=== PATIENT | female | born 1995 | race American Indian/Alaskan Native ===

== ENCOUNTER 2020-07-16 15:57 | Inpatient (IN) | payer OTHER ==
--- NOTE | 2020-07-16 18:33 | Ultrasound Report ---
US OB limited INDICATION / CLINICAL INFORMATION: no movement. COMPARISON: None available. FINDINGS: A single fetus is seen in the uterus in breech position. No cardiac activity is visualized IMPRESSION: Probable demise without cardiac activity visualized Signer Name: Alessandro Sepulveda MD FACR Signed: 07/16/2020 6:29 PM Workstation Name: [id number]
--- NOTE | 2020-07-16 18:38 | History and Physical Report ---
History of Present Illness Date of examination: 07/16/20 Date of admission: 07/16/2020 Chief complaint: Decreased movement History of present illness: at 27w6d presents with decreased movement for the past 3 days, IUFD on triage US. Denies cramping, bleeding, or pain. Denies illicit drug use or changes in lifestyle. PMH significant for depression and attempted suicide, now stable. Supportive partner at bedside. This has been uncomplicated until this point. Past History Past Medical History: other (depression) Past Surgical History: no surgical history Social history: other (supportive partner) - Obstetrical History Expected Date of Delivery: 10/09/20 Actual Gestation: 27 Week(s) 6 Day(s) : 1 Para: 0 Medications and Allergies Allergies Allergy/AdvReac Type Severity Reaction Status Date / Time No Known Allergies Allergy Verified 07/16/20 16:26 Review of Systems Gastrointestinal: no abdominal pain, no nausea, no vomiting, no diarrhea, no constipation Genitourinary: no vaginal bleeding, no vaginal discharge, no leakage of fluid, no pelvic pain, no contractions - Vital Signs Vital signs: Vital Signs Pulse Pulse Ox 73 100 07/16/20 16:49 07/16/20 16:49 Temp Pulse Resp BP Pulse Ox 68 123/74 100 07/16/20 16:52 07/16/20 16:52 07/16/20 16:49 - Physical Exam Lungs: Positive: Normal air movement Abdomen: Positive: normal appearance, soft. Negative: distention, tenderness, guarding, rigidity Genitourinary (Female): Positive: normal external genitalia Vagina: Positive: normal moisture Uterus: Positive: enlarged (gravid, 27w). Negative: tender - Obstetrical FHR: other (absent) Cervical Dilatation: 0 Cervical Effacement Percentage: 0 Uterine Contraction Pattern: Absent Results All other labs normal. Assessment and Plan A: 24 yo at 27w6d EGA Intrauterine Demise Cervix unfavorable Desires induction today P: Admit to L&D for induction of labor Cytotec Pain relief as requested Bereavement support HILLARY Gama
[2020-07-16] MEDS ORDERED: ePHEDrine SULFATE 50 MG/1 ML INJ IV PRN (18:50)
[2020-07-16] MEDS ORDERED: TERBUTALINE 1 MG/1 ML INJ SUB-Q PRN (18:50)
[2020-07-16] MEDS ORDERED: MINERAL OIL 30 ML ORAL LIQD PO PRN (18:50)
[2020-07-16] MEDS ORDERED: BUTORPHANOL 2 MG/1 ML INJ IV PRN ×2 (18:50)
[2020-07-16] MEDS ORDERED: OXYTOCIN 10 UNIT/1 ML INJ IM PRN (18:50)
[2020-07-16] MEDS ORDERED: PROMETHAZINE 25 MG TAB PO PRN (18:50)
[2020-07-16] MEDS ORDERED: ONDANSETRON 4 MG/2 ML INJ IV PRN (18:50)
[2020-07-16] MEDS ORDERED: NALOXONE 0.4 MG/1 ML INJ IV PRN (18:50)
[2020-07-16] MEDS ORDERED: OXYTOCIN DRIP 30 UNITS/500 ML BAG IV SCH ×2 (19:00)
[2020-07-16 19:23] LABS: Hematocrit 35.4 % (30.3-42.9); Hemoglobin 12.5 gm/dl (10.1-14.3); Mean Corpuscular HGB Conc 35 % (30-34); Mean Corpuscular Volume 89 fl (79-97); Platelet Count 255 K/mm3 (140-440); Red Blood Count 3.96 M/mm3 (3.65-5.03); Red Cell Distribution Width 13.3 % (13.2-15.2)
[2020-07-16 19:38] LABS: Alanine Aminotransferase 12 units/L (7-56); Albumin 3.9 g/dL (3.9-5); Blood Urea Nitrogen 12 mg/dL (7-17); Hemolysis Index 8
[2020-07-16 19:39] LABS: BUN/Creatinine Ratio 30
[2020-07-16] MEDS ORDERED: LIDOCAINE (2%) 20 MG/1 ML VIAL 20 ML MDV INFILTRATI ONE (20:00)
[2020-07-16] MEDS: miSOPROStol 25 MCG TAB VG SCH (20:27)
[2020-07-16] MEDS ORDERED: ZOLPIDEM 5 MG TAB PO PRN (20:36)
[2020-07-17] MEDS: miSOPROStol 25 MCG TAB VG SCH ×3 (00:26→06:51)
[2020-07-17] MEDS: fentaNYL 100 MCG/2 ML INJ IV PRN ×2 (06:36→08:19)
[2020-07-17] MEDS: LACTATED RINGERS 1,000 ML IV SCH ×2 (08:11→09:48)
[2020-07-17] MEDS ORDERED: ePHEDrine SULFATE 50 MG/1 ML INJ IV PRN (08:20)
[2020-07-17] MEDS ORDERED: NALOXONE 2 MG/2 ML INJ IV PRN (08:20)
--- NOTE | 2020-07-17 08:20 | Anesthesia Consultation ---
Anesthesia Consult and Med Hx Date of service: 07/17/20 - Airway Anesthetic Teeth Evaluation: Good ROM Head & Neck: Adequate Mental/Hyoid Distance: Adequate Mallampati Class: Class II Intubation Access Assessment: Probably Good - Pulmonary Exam CTA: Yes - Cardiac Exam Cardiac Exam: RRR - Pre-Operative Health Status ASA Pre-Surgery Classification: ASA2 Proposed Anesthetic Plan: Epidural - Pulmonary Hx Asthma: Yes (childhood) - Cardiovascular System Hx Hypertension: No - Central Nervous System Hx Seizures: No Hx Psychiatric Problems: Yes (depression) - Endocrine Hx Renal Disease: No Hx Hypothyroidism: No Hx Hyperthyroidism: No - Hematic Hx Anemia: No Hx Sickle Cell Disease: No - Other Systems Hx Alcohol Use: No
--- NOTE | 2020-07-17 08:25 | Progress Note ---
Assessment and Plan A: IUFD at 27w6d s/p multiple doses of misoprostol 50 mcg, last dose 100 mcg misoprostol at 0615 am P: Epidural Increase dose of misoprostol to 400 mcg q 4 hrs Closely monitor maternal status Subjective - Subjective Date of service: 07/17/20 Principal diagnosis: IUFD at 27w6d, undergoing induction of labor Interval history: Pt now uncomfortable with contractions, bolusing for epidural. Patient reports: contractions, no new complaints, no loss of fluid, no vaginal bleeding, no movement normal Objective - Vital Signs Vital Signs: Vital Signs - 12hr 07/16/20 07/16/20 07/16/20 20:25 20:30 20:35 Temperature Pulse Rate 62 59 L 59 L Respiratory Rate Blood Pressure Blood Pressure [Left] O2 Sat by Pulse 100 100 99 Oximetry 07/16/20 07/16/20 07/16/20 20:40 20:45 20:50 Temperature Pulse Rate 78 65 59 L Respiratory Rate Blood Pressure Blood Pressure [Left] O2 Sat by Pulse 100 97 100 Oximetry 07/16/20 07/16/20 07/16/20 20:55 21:00 21:06 Temperature Pulse Rate 60 56 L 82 Respiratory Rate Blood Pressure Blood Pressure [Left] O2 Sat by Pulse 100 100 93 Oximetry 07/16/20 07/16/20 07/16/20 21:07 21:12 21:17 Temperature Pulse Rate 86 68 66 Respiratory Rate Blood Pressure Blood Pressure [Left] O2 Sat by Pulse 100 100 100 Oximetry 07/16/20 07/16/20 07/16/20 21:22 21:27 21:32 Temperature Pulse Rate 59 L 64 76 Respiratory Rate Blood Pressure Blood Pressure [Left] O2 Sat by Pulse 100 100 100 Oximetry 07/16/20 07/16/20 07/16/20 21:37 21:42 21:47 Temperature Pulse Rate 81 68 68 Respiratory Rate Blood Pressure Blood Pressure [Left] O2 Sat by Pulse 99 99 99 Oximetry 07/16/20 07/16/20 07/16/20 21:52 21:55 21:57 Temperature Pulse Rate 72 76 63 Respiratory Rate Blood Pressure Blood Pressure [Left] O2 Sat by Pulse 100 92 100 Oximetry 07/16/20 07/16/20 07/16/20 22:02 22:07 22:12 Temperature Pulse Rate 67 66 68 Respiratory Rate Blood Pressure Blood Pressure [Left] O2 Sat by Pulse 100 100 100 Oximetry 07/16/20 07/16/20 07/16/20 22:17 22:22 22:27 Temperature Pulse Rate 64 88 66 Respiratory Rate Blood Pressure Blood Pressure [Left] O2 Sat by Pulse 100 100 100 Oximetry 07/16/20 07/16/20 07/16/20 22:32 22:37 22:42 Temperature Pulse Rate 64 65 70 Respiratory Rate Blood Pressure Blood Pressure [Left] O2 Sat by Pulse 100 100 99 Oximetry 07/16/20 07/16/20 07/16/20 22:47 22:52 22:57 Temperature Pulse Rate 65 72 66 Respiratory Rate Blood Pressure Blood Pressure [Left] O2 Sat by Pulse 99 100 99 Oximetry 07/16/20 07/16/20 07/16/20 23:02 23:07 23:12 Temperature Pulse Rate 72 69 102 H Respiratory Rate Blood Pressure Blood Pressure [Left] O2 Sat by Pulse 99 99 98 Oximetry 07/16/20 07/16/20 07/16/20 23:17 23:22 23:27 Temperature Pulse Rate 90 71 76 Respiratory Rate Blood Pressure Blood Pressure [Left] O2 Sat by Pulse 99 100 100 Oximetry 07/16/20 07/16/20 07/16/20 23:32 23:37 23:42 Temperature Pulse Rate 68 68 69 Respiratory Rate Blood Pressure Blood Pressure [Left] O2 Sat by Pulse 99 99 99 Oximetry 07/16/20 07/16/20 07/16/20 23:47 23:52 23:57 Temperature Pulse Rate 66 61 71 Respiratory Rate Blood Pressure Blood Pressure [Left] O2 Sat by Pulse 99 99 100 Oximetry 07/17/20 07/17/20 07/17/20 00:02 00:07 00:12 Temperature Pulse Rate 72 75 79 Respiratory Rate Blood Pressure Blood Pressure [Left] O2 Sat by Pulse 100 99 99 Oximetry 07/17/20 07/17/20 07/17/20 00:17 00:22 00:27 Temperature Pulse Rate 68 66 63 Respiratory Rate Blood Pressure Blood Pressure [Left] O2 Sat by Pulse 99 99 100 Oximetry 07/17/20 07/17/20 07/17/20 00:32 00:37 00:42 Temperature Pulse Rate 68 59 L 66 Respiratory Rate Blood Pressure Blood Pressure [Left] O2 Sat by Pulse 100 100 100 Oximetry 07/17/20 07/17/20 07/17/20 00:47 00:52 00:57 Temperature Pulse Rate 57 L 58 L 58 L Respiratory Rate Blood Pressure Blood Pressure [Left] O2 Sat by Pulse 100 100 100 Oximetry 07/17/20 07/17/20 07/17/20 01:02 01:07 01:12 Temperature Pulse Rate 58 L 65 61 Respiratory Rate Blood Pressure Blood Pressure [Left] O2 Sat by Pulse 100 100 100 Oximetry 07/17/20 07/17/20 07/17/20 01:17 01:23 01:28 Temperature Pulse Rate 63 79 70 Respiratory Rate Blood Pressure Blood Pressure [Left] O2 Sat by Pulse 100 100 100 Oximetry 07/17/20 07/17/20 07/17/20 01:33 01:38 01:39 Temperature Pulse Rate 78 67 73 Respiratory Rate Blood Pressure Blood Pressure [Left] O2 Sat by Pulse 99 100 78 L Oximetry 07/17/20 07/17/20 07/17/20 01:43 01:48 01:53 Temperature Pulse Rate 65 73 66 Respiratory Rate Blood Pressure Blood Pressure [Left] O2 Sat by Pulse 100 100 100 Oximetry 07/17/20 07/17/20 07/17/20 01:58 01:59 02:04 Temperature Pulse Rate 76 91 H 63 Respiratory Rate Blood Pressure Blood Pressure [Left] O2 Sat by Pulse 81 L 79 L 100 Oximetry 07/17/20 07/17/20 07/17/20 02:09 02:14 02:19 Temperature Pulse Rate 61 70 67 Respiratory Rate Blood Pressure Blood Pressure [Left] O2 Sat by Pulse 100 100 100 Oximetry 07/17/20 07/17/20 07/17/20 02:24 02:29 02:34 Temperature Pulse Rate 80 79 73 Respiratory Rate Blood Pressure Blood Pressure [Left] O2 Sat by Pulse 100 99 99 Oximetry 07/17/20 07/17/20 07/17/20 02:39 02:44 02:49 Temperature Pulse Rate 81 74 75 Respiratory Rate Blood Pressure Blood Pressure [Left] O2 Sat by Pulse 100 99 99 Oximetry 07/17/20 07/17/20 07/17/20 02:54 02:59 03:04 Temperature Pulse Rate 80 78 89 Respiratory Rate Blood Pressure Blood Pressure [Left] O2 Sat by Pulse 99 100 99 Oximetry 07/17/20 07/17/20 07/17/20 03:09 03:14 03:19 Temperature Pulse Rate 84 79 82 Respiratory Rate Blood Pressure Blood Pressure [Left] O2 Sat by Pulse 98 98 99 Oximetry 07/17/20 07/17/20 07/17/20 03:24 03:29 03:34 Temperature Pulse Rate 81 84 84 Respiratory Rate Blood Pressure Blood Pressure [Left] O2 Sat by Pulse 99 99 98 Oximetry 07/17/20 07/17/20 07/17/20 03:39 03:46 03:47 Temperature Pulse Rate 84 64 73 Respiratory Rate Blood Pressure Blood Pressure [Left] O2 Sat by Pulse 99 87 99 Oximetry 07/17/20 07/17/20 07/17/20 03:52 03:57 04:02 Temperature Pulse Rate 78 79 77 Respiratory Rate Blood Pressure Blood Pressure [Left] O2 Sat by Pulse 100 99 100 Oximetry 07/17/20 07/17/20 07/17/20 04:19 04:24 04:29 Temperature Pulse Rate 53 L 77 78 Respiratory Rate Blood Pressure Blood Pressure [Left] O2 Sat by Pulse 99 100 100 Oximetry 07/17/20 07/17/20 07/17/20 04:34 04:39 04:44 Temperature Pulse Rate 71 85 87 Respiratory Rate Blood Pressure Blood Pressure [Left] O2 Sat by Pulse 100 99 100 Oximetry 07/17/20 07/17/20 07/17/20 05:03 05:05 05:10 Temperature Pulse Rate 25 L 80 71 Respiratory Rate Blood Pressure Blood Pressure [Left] O2 Sat by Pulse 83 L 100 100 Oximetry 07/17/20 07/17/20 07/17/20 05:12 05:15 05:20 Temperature Pulse Rate 79 73 72 Respiratory Rate Blood Pressure Blood Pressure [Left] O2 Sat by Pulse 82 L 100 99 Oximetry 07/17/20 07/17/20 07/17/20 05:25 05:29 05:30 Temperature Pulse Rate 84 85 77 Respiratory Rate Blood Pressure Blood Pressure [Left] O2 Sat by Pulse 100 75 L 100 Oximetry 07/17/20 07/17/20 07/17/20 05:35 05:38 05:40 Temperature Pulse Rate 77 91 H 73 Respiratory Rate Blood Pressure Blood Pressure [Left] O2 Sat by Pulse 100 85 99 Oximetry 07/17/20 07/17/20 07/17/20 05:45 05:47 05:50 Temperature Pulse Rate 89 80 78 Respiratory Rate Blood Pressure Blood Pressure [Left] O2 Sat by Pulse 99 84 100 Oximetry 07/17/20 07/17/20 07/17/20 05:55 05:56 06:00 Temperature Pulse Rate 75 67 84 Respiratory Rate Blood Pressure Blood Pressure [Left] O2 Sat by Pulse 98 79 L 100 Oximetry 07/17/20 07/17/20 07/17/20 06:05 06:09 06:10 Temperature Pulse Rate 77 103 H 76 Respiratory Rate Blood Pressure Blood Pressure [Left] O2 Sat by Pulse 100 79 L 97 Oximetry 07/17/20 07/17/20 07/17/20 06:15 06:20 06:25 Temperature Pulse Rate 84 70 80 Respiratory Rate Blood Pressure Blood Pressure [Left] O2 Sat by Pulse 99 100 100 Oximetry 07/17/20 07/17/20 07/17/20 06:30 07:08 07:09 Temperature 98.2 F Pulse Rate 76 69 67 Respiratory 16 Rate Blood Pressure 142/78 Blood Pressure 125/75 [Left] O2 Sat by Pulse 100 99 Oximetry 07/17/20 07/17/20 07/17/20 07:10 07:14 07:19 Temperature Pulse Rate 67 74 77 Respiratory Rate Blood Pressure 125/75 Blood Pressure [Left] O2 Sat by Pulse 100 100 Oximetry 07/17/20 07/17/20 07/17/20 07:24 07:29 07:34 Temperature Pulse Rate 71 117 H 64 Respiratory Rate Blood Pressure Blood Pressure [Left] O2 Sat by Pulse 99 100 100 Oximetry 07/17/20 07/17/20 07/17/20 07:36 07:39 07:44 Temperature Pulse Rate 72 72 Respiratory 18 Rate Blood Pressure Blood Pressure [Left] O2 Sat by Pulse 100 100 Oximetry 07/17/20 07/17/20 07/17/20 07:49 07:54 08:10 Temperature Pulse Rate 65 67 66 Respiratory Rate Blood Pressure Blood Pressure [Left] O2 Sat by Pulse 100 100 95 Oximetry 07/17/20 07/17/20 07/17/20 08:15 08:19 08:20 Temperature Pulse Rate 65 68 Respiratory 18 Rate Blood Pressure Blood Pressure [Left] O2 Sat by Pulse 100 100 Oximetry - Exam Breasts: deferred Abdomen: Present: soft (gravid ) Uterus: Present: normal (gravid ) Uterine Contraction Monitor Mode: External Uterine Contraction Pattern: Irregular Uterine Tone Measurement Phase: Resting Uterine Contraction Intensity: Moderate - Labs Labs: Abnormal Labs 07/16/20 07/16/20 19:10 19:10 MCHC 35 H Sodium 135 L Creatinine 0.4 L Laboratory Results - last 24 hr 07/16/20 07/16/20 07/16/20 19:10 19:10 19:10 WBC 10.8 RBC 3.96 Hgb 12.5 Hct 35.4 MCV 89 MCH 32 MCHC 35 H RDW 13.3 Plt Count 255 Sodium 135 L Potassium 4.3 Chloride 99.8 Carbon Dioxide 23 Anion Gap 17 BUN 12 Creatinine 0.4 L Estimated GFR > 60 BUN/Creatinine Ratio 30 Glucose 86 Calcium 10.0 Total Bilirubin 0.20 AST 28 ALT 12 Alkaline Phosphatase 91 Total Protein 7.9 Albumin 3.9 Albumin/Globulin Ratio 1.0 Blood Type A POSITIVE Antibody Screen Negative
[2020-07-17] MEDS ORDERED: miSOPROStol 100 MCG TAB VG SCH (08:30)
[2020-07-17] MEDS ORDERED: fentaNYL-BUPIV 2 MCG/ML-0.125% 200 MCG/100 ML BAG EPIDURAL SCH (09:00)
[2020-07-17] MEDS ORDERED: DEXMEDETOMIDINE 200 MCG/2 ML VIAL IV ONE (09:13)
--- NOTE | 2020-07-17 09:36 | Progress Note ---
Labor Epidural - Labor Epidural Start Time: 09:23 Stop Time: :34 Performed by:: VERA ALEJO Procedure: Patient is requesting epidural for labor pain. H&P, and labs reviewed. Procedure explained, questions answered, consent obtained. Patient in sitting position with blood pressure cuff and pulse ox on and working. Timeout performed immediately before start of procedure. Sterile betadine prep/drape. 3 mL 1% lidocaine skin wheal at L[3]-L[4]. 18-gauge Touhy epidural needle advanced to elni-oy-taivogqpan with saline at [7] cm. Epidural dexmedetomidine [30] mcg administered. Epidural catheter advanced to [12] cm, negative aspiration for blood and csf, negative test dose 3 ml 1.5% lidocaine with epinephrine. Sterile steri-strips and tegaderm applied, followed by tape reinforcement. Patient tolerated procedure well. SRNA
[2020-07-17] MEDS ORDERED: miSOPROStol 200 MCG TAB VG SCH (10:15)
--- NOTE | 2020-07-17 10:44 | Event Note ---
Date: 07/17/20 Pt comfortable with epidural. SVE: /-1. Misoprostol 400 mcg placed per vagina. Continue routine intrapartum care.
--- NOTE | 2020-07-17 13:52 | Procedure Note ---
OB Delivery Note - Delivery Date of Delivery: 07/17/20 Surgeon: SUSANA PEREZ Estimated blood loss: 200cc - Vaginal Delivery presentation: breech Delivery induction: misoprostol Delivery monitor: external uterine Route of delivery: Delivery placenta: spontaneous Delivery cord: 3 umbilical vessels Episiotomy: none Delivery laceration: none Anesthesia: epidural - A at 1 minute: 0 at 5 minutes: 0 Gender: Female (907g (2lb 0oz) @ 1335 pm)
[2020-07-17] MEDS ORDERED: PROMETHAZINE 25 MG TAB PO PRN (17:00)
[2020-07-17] MEDS ORDERED: PROMETHAZINE 25 MG RECT SUPP PR PRN (17:00)
[2020-07-17] MEDS ORDERED: LANOLIN/ZINC/DIMETHICONE (LANSINOH) 7 GM TP PRN ×2 (17:00)
[2020-07-17] MEDS ORDERED: ONDANSETRON 4 MG/2 ML INJ IV PRN (17:00)
[2020-07-17] MEDS ORDERED: WITCH HAZEL/ GLYCERIN PAD TP PRN (17:00)
[2020-07-17] MEDS ORDERED: diphenhydrAMINE 25 MG CAP PO PRN (17:00)
[2020-07-17] MEDS ORDERED: HYDROcodone/ACETAMINOPHEN 5-325 MG TAB PO PRN (17:00)
[2020-07-17] MEDS ORDERED: BENZOCAINE/MENTHOL 20/0.5% TOP SPRAY 56 GM TP PRN (17:00)
[2020-07-17] MEDS ORDERED: MAGNESIUM HYDROXIDE (MOM) ORAL LIQD UDC PO PRN (22:00)
[2020-07-17] MEDS: IBUPROFEN 600 MG TAB PO SCH (23:00)
[2020-07-18 03:28] LABS: Hematocrit 31.6 % (30.3-42.9); Hemoglobin 11.1 gm/dl (10.1-14.3)
[2020-07-18] MEDS: IBUPROFEN 600 MG TAB PO SCH ×2 (05:09→11:00)
--- NOTE | 2020-07-18 07:21 | Progress Note ---
Assessment and Plan A: PPD#1 s/p at 27w6d secondary to demise P: Discharge today with follow up in 2 wks. Subjective - Subjective Date of service: 07/18/20 Principal diagnosis: IUFD at 27w6d, s/p Interval history: No overnight events Patient reports: appetite normal, voiding normally, pain well controlled, ambulating normally, no dizzy ambulation [place]: Objective - Vital Signs Latest vital signs: Vital Signs Temp Pulse Resp BP BP Pulse Ox 07/18/20 01:15 99.1 F 66 20 112/69 98 07/17/20 20:26 99.4 F 69 22 103/56 99 07/17/20 16:19 98.4 F 72 16 102/61 98 07/17/20 15:34 90 109/63 07/17/20 15:19 86 102/61 07/17/20 15:04 76 103/60 07/17/20 14:49 75 108/68 07/17/20 14:34 81 112/67 07/17/20 14:19 62 115/68 07/17/20 14:04 70 119/65 07/17/20 13:47 74 100 07/17/20 13:42 34 L 92 07/17/20 13:40 71 0 L 07/17/20 13:37 82 99 07/17/20 13:32 77 100 07/17/20 13:27 72 100 07/17/20 13:22 66 121/80 100 07/17/20 13:17 67 100 07/17/20 13:12 60 98 07/17/20 13:07 61 98 07/17/20 13:02 61 99 07/17/20 12:57 59 L 98 07/17/20 12:52 59 L 104/68 99 07/17/20 12:47 60 99 07/17/20 12:42 62 99 07/17/20 12:37 57 L 100 07/17/20 12:34 60 81 L 07/17/20 12:32 58 L 100 07/17/20 12:27 56 L 100 07/17/20 12:22 98.8 F 67 16 113/70 113/70 100 07/17/20 12:17 60 99 07/17/20 12:12 59 L 100 10/19/20 12:07 60 99 07/17/20 12:02 63 100 1019/20 11:57 59 L 100 07/17/20 11:52 61 100 10/20 11:47 60 100 07/17/20 11:42 66 100 07/17/20 11:37 62 100 07/17/20 11:32 61 97 07/17/20 11:27 63 100 07/17/20 11:22 65 100 07/17/20 11:17 66 100 07/17/20 11:12 66 100 07/17/20 11:07 70 100 07/17/20 11:02 73 100 07/17/20 10:57 70 97 07/17/20 10:52 66 99 07/17/20 10:47 65 99 07/17/20 10:42 74 99 07/17/20 10:37 82 99 07/17/20 10:32 65 98 07/17/20 10:27 62 98 07/17/20 10:22 63 98 07/17/20 10:17 62 98 07/17/20 10:12 59 L 98 07/17/20 10:07 63 98 07/17/20 10:02 58 L 100 07/17/20 09:57 61 100 07/17/20 09:52 63 100 07/17/20 09:47 73 100 07/17/20 09:42 69 100 07/17/20 09:37 83 100 07/17/20 09:36 89 109/62 07/17/20 09:33 65 122/69 07/17/20 09:32 80 100 07/17/20 09:27 72 100 20 09:10 74 97 07/17/20 09:05 61 100 19/20 09:00 67 98 19/20 08:55 67 100 07/17/20 08:50 66 100 07/17/20 08:45 57 L 100 07/17/20 08:40 63 100 07/17/20 08:35 57 L 99 07/17/20 08:30 62 99 19/20 08:25 104 H 99 07/17/20 08:20 68 100 19/20 08:19 18 10/20 08:15 65 100 07/17/20 08:10 66 95 19/20 07:54 67 100 07/17/20 07:49 65 100 07/17/20 07:44 72 100 07/17/20 07:39 72 100 07/17/20 07:36 18 07/17/20 07:34 64 100 07/17/20 07:29 117 H 100 07/17/20 07:24 71 99 Intake and Output 07/17/20 07/18/20 07/18/20 22:59 06:59 14:59 Intake Total 260 240 Output Total 400 700 Balance -140 -460 Intake: Intake, Free Water 260 240 Output: Urine 400 700 Void 400 700 Other: Total, Output Amount 400 700 Estimated Blood Loss 200 - Exam Breasts: Present: deferred Abdomen: Present: soft Uterus: Present: fundal height below umbilicus Extremities: Present: normal
--- NOTE | 2020-07-18 07:25 | Discharge Summary ---
Providers - Providers Date of Admission: 07/16/20 18:50 Date of discharge: 07/18/20 Attending physician: JAIDEN BILLINGS 07/16/20 18:57 Consult to Case Management [CONS] Routine Services Needed at Discharge: In Store Marketing Representative Notified:: ian Comment:: Bereavement support Primary care physician: JAIDEN BILLINGS Hospitalization Reason for admission: other ( demise ) Delivery: Procedure details: Please see delivery note. Episiotomy: none Laceration: none Other procedures: none complications: none Discharge diagnosis: delivery baby: female Hospital course: Pt was admitted for intrauterine demise at 27w6d. She underwent induction of labor with cytotec and had a spontaneous vaginal delivery which she tolerated well. She was observed overnight, and met discharge criteria on PPD#1. She will follow up in the office in 2 weeks. Condition at discharge: Stable Disposition: DC-01 TO HOME OR SELFCARE - Discharge Diagnoses (1) demise > 22 weeks, delivered, current hospitalization Status: Acute Plan - Discharge Medications Prescriptions: Ibuprofen [Motrin] 600 mg PO Q6H PRN #30 tablet PRN Reason: Pain - Provider Discharge Summary Activity: routine, no sex for 6 weeks, no heavy lifting 4 weeks, no strenuous exercise Diet: routine Instructions: routine Additional instructions: [] Smoking cessation referral if applicable(refer to patient education folder for contact #) [] Refer to [facility] Booklet Call your doctor immediately for: * Fever > 100.5 * Heavy vaginal bleeding ( >1 pad per hour) * Severe persistent headache * Shortness of breath * Reddened, hot, painful area to leg or breast * Drainage or odor from incision. * Keep incision clean and dry at all times and follow doctor's instructions regarding bathing/showering - Follow up plan Follow up: SUSANA PEREZ MD [Staff Physician] - 08/01/20 (Please schedule your appt on Friday or Friday ) Forms: [facility] Discharge Summary
[2020-07-18 08:42] VITALS: BP 110/72
--- NOTE | 2020-07-18 09:22 | Post Anesthesia Evaluation ---
- Post Anesthesia Evaluation Patient Participated: Yes Airway Patent: Yes Stable Respiratory Function: Yes Nausea/Vomiting: No Temp > 96.8F: Yes Pain Manageable: Yes Adequeate Hydration: Yes Anesthesia Complications: No Block Receding Appropriately: Yes
== END 2020-07-18 11:58 | disposition home or self-care (01) | DRG 775 ==
LOC: TRG 15:57 → APU 15:57 → OBSVTOIN 18:50 → TRG 18:50 → LD 18:50 → OB 07-17 16:17
PROVIDERS: ADMIT Obstetrics & Gynecology; ATTEND Obstetrics & Gynecology
PROC: 10E0XZZ Delivery of Products of Conception, External Approach (ICD-10-PCS; principal; 2020-07-17)
PROC: 3E0P7VZ Introduction of Hormone into Female Reproductive, Via Natural or Artificial Opening (ICD-10-PCS; 2020-07-17)
PROC: 3E0R3BZ Introduction of Anesthetic Agent into Spinal Canal, Percutaneous Approach (ICD-10-PCS; 2020-07-17)
PROC: 00HU33Z Insertion of Infusion Device into Spinal Canal, Percutaneous Approach (ICD-10-PCS; 2020-07-17)
DX: O36.4XX0 Maternal care for intrauterine death, not applicable or unspecified (principal); Z37.1 Single stillbirth; Z3A.27 27 weeks gestation of pregnancy; O47.02 False labor before 37 completed weeks of gestation, second trimester
CPT/HCPCS: 36415; 76815; 80053; 85014; 85018; 85027; 86850; 86900; 86901; 88307; G0378; J2405; J3010; J7120; U0003-CS

== ENCOUNTER 2021-02-10 01:04 | Outpatient (CLI) | payer OTHER | END 2021-02-10 04:05 | disposition home or self-care (01) | LOC: TRG 01:04 → APU 01:05 | CPT/HCPCS: 59025; 81001 ==